=== PATIENT | female | born 2000 | race African-American/Black ===

== ENCOUNTER 2021-06-16 00:12 | Inpatient (IN) ==
[2021-06-16] MEDS ORDERED: BUTORPHANOL 2 MG/ML VIAL IV PRN (00:35)
[2021-06-16] MEDS ORDERED: ONDANSETRON 4 MG/2 ML VIAL IV PRN (00:35)
[2021-06-16] MEDS ORDERED: MEPERIDINE 50 MG/1 ML VIAL IV PRN (00:35)
[2021-06-16 01:15] LABS: Alanine Aminotransferase 10 U/L (13-56); Albumin 2.6 G/DL (3.4-5.0); Alkaline Phosphatase 250 U/L (45-117); Aspartate Amino Transferase 14 U/L (0-37); Bilirubin,Total < 0.39 MG/DL (0.20-1.00); Blood Urea Nitrogen 6 MG/DL (7-18); Calcium 8.8 MG/DL (8.5-10.1); Carbon Dioxide 20 MMOL/L (21-32); Estimated Glom Filtration Rate 163 ML/MIN; Glucose 90 MG/DL (74-106); Potassium 3.7 MMOL/L (3.5-5.1); Sodium 136 MMOL/L (136-145); Total Protein 7.7 G/DL (6.4-8.2)
[2021-06-16 01:21] LABS: Basophils % 0.4 % (0.0-0.8); Eosinophils # 0.2 10*3/uL (0.0-0.87); Eosinophils % 1.6 % (0.00-10.9); Hematocrit 32.2 VOL% (35.7-47.0); Hemoglobin 10.3 GM/DL (12.0-16.0); Immature Granulocytes Absolute 0.11 #; Lymphocytes # 2.6 10*3/uL (1.4-4.0); Lymphocytes % 23.2 % (21.3-54.2); Mean Corpuscular Volume 82.4 FL (87-102); Mean Platelet Volume 11.9 FL (9.6-12.0); Neutrophils % 63.8 % (38.7-73.9); Platelet Count 174 T/CUMM (130-400); Red Blood Count 3.91 MC/CUMM (3.8-5.5); Red Cell Distribution Width 12.3 % (9.3-17.3); White Blood Count 11.3 T/CUMM (4-12)
[2021-06-16] MEDS ORDERED: OXYTOCIN/LR 30 UNIT/1,000 ML BAG IV PRN (01:33)
[2021-06-16] MEDS: LACTATED RINGERS 1,000 ML IV SCH ×4 (01:34→15:11)
[2021-06-16] MEDS ORDERED: AZITHROMYCIN INJ 500 MG in SODIUM CHLORIDE 0.9% 250 ML IV ONE (09:34)
[2021-06-16] MEDS: OXYTOCIN/LR 20 UNIT/1,000 ML BAG IV PRN (09:35)
[2021-06-16] MEDS ORDERED: LACTATED RINGERS 1,000 ML IV ONE (09:48)
[2021-06-16] MEDS ORDERED: hydrOXYzine HCL 25 MG/1 ML VIAL IM PRN (09:48)
[2021-06-16] MEDS ORDERED: NALOXONE 0.4 MG/ML VIAL IV PRN (09:48)
[2021-06-16] MEDS ORDERED: PROMETHAZINE 25 MG/1 ML VIAL IM ONE (09:48)
[2021-06-16] MEDS ORDERED: FAMOTIDINE 20 MG/2 ML VIAL IV ONE (09:48)
[2021-06-16] MEDS ORDERED: diphenhydrAMINE 50 MG/1 ML VIAL IV PRN ×2 (09:48)
[2021-06-16] MEDS ORDERED: ePHEDrine 50 MG/ML VIAL IV PRN (09:48)
[2021-06-16] MEDS ORDERED: CITRIC ACID/SODIUM CITRATE 30 ML UDCUP PO ONE (09:48)
[2021-06-16] MEDS: fentaNYL 2 MCG/ROPIV 0.2% EPID 100 ML EPIDURAL SCH ×2 (12:37→19:58)
[2021-06-16] MEDS: ePHEDrine 50 MG/ML VIAL IV PRN ×2 (12:59→13:13)
[2021-06-16 15:10] LABS: Bilirubin,Urine Negative (Negative); Blood, Urine Negative (Negative); Glucose,Urine (UA) Negative (Negative); Ketones,Urine 5 mg/dL (Negative); Mucus,Urine Occasional /LPF (Occasional); Nitrite,Urine Negative (Negative); Protein,Urine Negative; RBC,Urine <1 /HPF (0-4); Squamous Epithelial Cell,Urine Occasional /HPF (0-10); Urine Appearance CLEAR (Clear); Urine Color Yellow (Yellow); Urine Specific Gravity 1.008 (1.001-1.035); Urine Urobilinogen < 2.0 EU/DL (<2.0)
[2021-06-17] MEDS: LACTATED RINGERS 1,000 ML IV SCH ×2 (01:03→01:04)
[2021-06-17] MEDS: OXYTOCIN/LR 20 UNIT/1,000 ML BAG IV PRN (01:47)
[2021-06-17] MEDS: fentaNYL 2 MCG/ROPIV 0.2% EPID 100 ML EPIDURAL SCH (02:29)
[2021-06-17] MEDS ORDERED: SODIUM CHLORIDE 0.9% 100 ML IV ONE ×2 (03:03→06:38)
[2021-06-17] MEDS ORDERED: miSOPROStoL 200 MCG TABLET ONE (03:03)
[2021-06-17] MEDS ORDERED: TRANEXAMIC ACID 1,000 MG/10 ML VIAL ONE (03:03)
[2021-06-17] MEDS ORDERED: METHYLERGONOVINE 0.2 MG/1 ML AMP ONE (03:04)
[2021-06-17] MEDS ORDERED: CARBOPROST TROMETHAMINE 250 MCG/ML AMP IM ONE (03:04)
[2021-06-17] MEDS ORDERED: ACETAMINOPHEN 500 MG TABLET PO ONE (04:13)
[2021-06-17] MEDS ORDERED: AMPICILLIN INJ 2,000 MG in SODIUM CHLORIDE 0.9% 100 ML IV SCH (04:30)
[2021-06-17 05:47] LABS: Cord Venous Blood HCO3 21.2 MMOL/L; Cord Venous Blood PCO2 41.7 MMHG
[2021-06-17] MEDS ORDERED: DIPH/TET/ACEL PERT BOOSTER VACCINE 0.5 ML VIAL IM ONE (06:00)
[2021-06-17] MEDS ORDERED: BISACODYL 10 MG SUPP RECTAL PRN (06:00)
[2021-06-17] MEDS ORDERED: ACETAMINOPHEN 325 MG TABLET PO PRN (06:00)
[2021-06-17] MEDS ORDERED: OXYTOCIN/LR 20 UNIT/1,000 ML BAG IV ONE (06:00)
[2021-06-17] MEDS ORDERED: BENZOCAINE 20%/MENTHOL 0.5% SPRAY 56 GM CAN TOP PRN (06:00)
[2021-06-17] MEDS ORDERED: LANOLIN 50% CREAM 0.3 OZ TUBE TOP PRN (06:00)
[2021-06-17] MEDS ORDERED: RHO(D) IMMUNE GLOBULIN 300 MCG SYRINGE IM ONE (06:00)
[2021-06-17] MEDS ORDERED: HYDROCORTISONE 2.5% RECTAL CREAM 30 GM TUBE TOP PRN (06:00)
[2021-06-17] MEDS ORDERED: oxyCODONE/ACETAMINOPHEN 5-325 MG TABLET PO PRN (06:00)
[2021-06-17] MEDS ORDERED: MEASLES/MUMPS/RUBELLA VACCINE 0.5 ML VIAL SUBCUT ONE (06:00)
[2021-06-17] MEDS ORDERED: WITCH HAZEL PADS 100/JAR TOP PRN (06:00)
[2021-06-17] MEDS ORDERED: ONDANSETRON 4 MG/2 ML VIAL IV PRN (06:00)
[2021-06-17] MEDS ORDERED: METHYLERGONOVINE 0.2 MG/1 ML AMP IM ONE (06:02)
[2021-06-17] MEDS: DOCUSATE SODIUM 100 MG CAPSULE PO SCH ×2 (11:25→20:36)
[2021-06-17] MEDS: oxyCODONE/ACETAMINOPHEN 5-325 MG TABLET PO PRN ×2 (11:25→20:37)
[2021-06-17] MEDS: IBUPROFEN 800 MG TABLET PO PRN ×2 (11:26→20:36)
[2021-06-18 05:16] LABS: Basophils % 0.3 % (0.0-0.8); Eosinophils # 0.2 10*3/uL (0.0-0.87); Eosinophils % 1.5 % (0.00-10.9); Hematocrit 23.9 VOL% (35.7-47.0); Hemoglobin 7.7 GM/DL (12.0-16.0); Immature Granulocytes % 0.7 %; Lymphocytes # 2.9 10*3/uL (1.4-4.0); Lymphocytes % 18.8 % (21.3-54.2); Mean Corpuscular HGB Conc 32.2 GM/DL (32-36); Mean Corpuscular Volume 82.4 FL (87-102); Mean Platelet Volume 11.9 FL (9.6-12.0); Neutrophils % 69.7 % (38.7-73.9); Platelet Count 153 T/CUMM (130-400); Red Cell Distribution Width 12.3 % (9.3-17.3); White Blood Count 15.4 T/CUMM (4-12)
[2021-06-18 05:36] LABS: Eosinophils 1 % (0-10); Lymphocytes 16 % (20-55); Segmented Neutrophils 73 % (50-85); Total Cells Counted 100
[2021-06-18 05:38] LABS: Hypochromia 1+; Microcytosis 1+
[2021-06-18 05:39] LABS: Platelet Estimate Adequate
[2021-06-18] MEDS: FERROUS SULFATE 325 MG TABLET PO SCH ×2 (09:00→21:00)
[2021-06-18] MEDS: DOCUSATE SODIUM 100 MG CAPSULE PO SCH ×2 (09:00→21:00)
[2021-06-18] MEDS ORDERED: SODIUM CHLORIDE 0.9% 1,000 ML IV PRN ×3 (09:22→09:27)
[2021-06-18 18:47] LABS: Basophils # 0.1 10*3/uL (0.0-0.2); Basophils % 0.3 % (0.0-0.8); Eosinophils # 0.2 10*3/uL (0.0-0.87); Eosinophils % 1.5 % (0.00-10.9); Hematocrit 28.7 VOL% (35.7-47.0); Hemoglobin 9.3 GM/DL (12.0-16.0); Immature Granulocytes % 1.4 %; Immature Granulocytes Absolute 0.21 #; Lymphocytes # 2.9 10*3/uL (1.4-4.0); Mean Corpuscular HGB Conc 32.4 GM/DL (32-36); Mean Corpuscular Volume 83.7 FL (87-102); Mean Platelet Volume 11.5 FL (9.6-12.0); Monocytes % 7.8 % (1.7-12.7); Platelet Count 164 T/CUMM (130-400); Red Blood Count 3.43 MC/CUMM (3.8-5.5); Red Cell Distribution Width 12.8 % (9.3-17.3); White Blood Count 15.4 T/CUMM (4-12)
[2021-06-19 08:26] VITALS: BP 119/43
[2021-06-19] MEDS: DOCUSATE SODIUM 100 MG CAPSULE PO SCH (08:51)
[2021-06-19] MEDS ORDERED: FERROUS SULFATE 325 MG TABLET PO SCH (09:00)
[2021-06-19] MEDS ORDERED: INFLUENZA VIRUS VACCINE 0.5 ML SYRINGE IM ONE (11:45)
== END 2021-06-19 12:55 | disposition home or self-care (01) | DRG 560 ==
LOC: N.LD 00:12 → N.OB 06-17 10:15
PROVIDERS: ADMIT Obstetrics & Gynecology; ATTEND Obstetrics & Gynecology